=== PATIENT | female | born 1965 | race Caucasian/White ===

== ENCOUNTER 2018-04-03 17:06 | Inpatient (IN) | payer OTHER ==
[2018-04-03] VITALS (7 sets, daily range): BP systolic 127–140
[~2018-04-03] VITALS: Ht 154.9 cm; Wt 81.6 kg
[2018-04-03] MEDS ORDERED: NALOXONE HCL 2 MG/2 ML SYR IVP ONE (17:15)
[2018-04-03 17:26] LABS: BILIRUBIN,URINE 1+ (NEGATIVE); BLOOD, URINE NEGATIVE (NEGATIVE); CLARITY/URINE CLEAR (CLEAR); COLOR,URINE YELLOW (YELLOW); GLUCOSE,URINE NEGATIVE (NEGATIVE); KETONES,URINE TRACE (NEGATIVE); LEUKOCYTE ESTERASE ,URINE NEGATIVE (NEGATIVE); NITRITE, URINE NEGATIVE (NEGATIVE); PH,URINE 5.5 (5.0-8.0); PROTEIN URINE TRACE (NEGATIVE); UROBILINOGEN,URINE 0.2 (0.2-1.0)
[2018-04-03 17:39] LABS: BACTERIA,URINE MODERATE /HPF (None Seen); MUCUS,URINE 1+ /LPF (None Seen); RBC,URINE 0-3 /HPF (0-3); WBC,URINE 0-3 /HPF (0-3)
[2018-04-03 17:43] LABS: BARBITURATE, URINE NEGATIVE (NEG <=200)
[2018-04-03 17:44] LABS: BASOPHILS # (AUTO) 0.1 K/uL (0.0-0.2); BASOPHILS % (AUTO) 1.7 % (0.0-2.0); EOSINOPHILS # (AUTO) 0.1 K/uL (0.0-0.4); EOSINOPHILS % (AUTO) 1.8 % (0.0-4.0); HEMATOCRIT 40.2 % (36-48); HEMOGLOBIN 13.2 g/dL (12.0-16.0); LYMPHOCYTES # (AUTO) 2.2 K/uL (1.0-5.5); LYMPHOCYTES % (AUTO) 33.1 % (20.5-51.5); MEAN CORPUSCULAR HEMOGLOBIN 30 pg (27-31); MEAN CORPUSCULAR HGB CONC 33 % (32-36); MEAN CORPUSCULAR VOLUME 92 fL (79.0-98.0); MONOCYTES # (AUTO) 0.4 K/uL (0.0-1.0); MONOCYTES % (AUTO) 6.9 % (1.7-9.3); NEUTROPHILS # (AUTO) 3.7 K/uL (1.8-7.7); NEUTROPHILS % (AUTO) 56.5 % (40.0-70.0); PLATELET COUNT (AUTO) 304 K/uL (130-430); RED BLOOD CELL COUNT(AUTO) 4.39 MIL/uL (4.2-6.2); RED CELL DISTRIBUTION WIDTH 13.4 % (9.0-15.0); WHITE BLOOD COUNT (AUTO) 6.5 K/uL (4.8-10.8)
[2018-04-03 17:44] LABS: BENZODIAZEPINE, URINE POSITIVE (NEG <=150); CANNABINOID, URINE POSITIVE (NEG <=50); COCAINE, URINE NEGATIVE (NEG <=150); METHAMPHETAMINES SCREEN,URINE POSITIVE (NEG <=500); OPIATE, URINE NEGATIVE (NEG <=100); PHENCYCLIDINE SCREEN,URINE NEGATIVE (NEG <=25); UR TRICYCLIC ANTIDEPRESSANTS POSITIVE (NEG <=300); URINE AMPHETAMINE NEGATIVE (NEG <=500); URINE METHADONE NEGATIVE (NEG <=200); URINE OXYCODONE SCREEN NEGATIVE (NEG <=100); URINE PROPOXYPHENE SCREEN NEGATIVE (NEG <=300)
[2018-04-03 17:48] LABS: CALCIUM 9.4 mg/dL (8.4-11.0); CREATININE 1.32 mg/dL (0.55-1.30); POTASSIUM 3.2 mmol/L (3.5-5.1)
[2018-04-03 17:54] LABS: ALBUMIN 3.9 g/dL (3.4-4.8); TOTAL BILIRUBIN 0.4 mg/dL (0.0-1.0)
[2018-04-03] MEDS ORDERED: SODIUM BICARBONATE 8.4% JECT 50 MEQ/50 ML SYRINGE IVP ONE (18:00)
[2018-04-03] MEDS ORDERED: LORazepam 2 MG/ML VIAL (FOR ER USE) ONE ×2 (18:17→18:19)
[2018-04-03] MEDS ORDERED: ZOLP10TA2 PO (18:33)
[2018-04-03] MEDS ORDERED: TYC3 PO (18:33)
[2018-04-03] MEDS ORDERED: CARI350T27 PO (18:33)
[2018-04-03] MEDS ORDERED: GABA-531 PO (18:33)
[2018-04-03] MEDS ORDERED: CLON2TAB4 PO (18:33)
[2018-04-03] MEDS ORDERED: CLON1TAB4 PO (18:33)
[2018-04-03] MEDS ORDERED: HYDR-1189 PO (18:33)
[2018-04-03] MEDS ORDERED: D5LR 1,000 ML IV ONE (19:00)
[2018-04-03] MEDS ORDERED: THIAMINE HCL 100 MG in NS 50 ML IV ONE (20:45)
[2018-04-03] MEDS ORDERED: D5LR 500 ML IV ONE (20:45)
[2018-04-03] MEDS ORDERED: PANTOPRAZOLE SODIUM 40 MG/VIAL (PROTONIX) IVP ONE (21:00)
[2018-04-03] MEDS ORDERED: hydrALAZINE HCL 20 MG/ML VIAL IVP PRN (21:00)
[2018-04-03] MEDS ORDERED: LORazepam 2 MG/ML VIAL IVP PRN (21:00)
[2018-04-03] MEDS ORDERED: D5LR 1,000 ML IV SCH (21:00)
[2018-04-03] MEDS ORDERED: THIAMINE HCL 100 MG/ML VIAL ONE ×2 (21:09→21:10)
[2018-04-03 21:13] LABS: CALCIUM 8.6 mg/dL (8.4-11.0); CREATININE 0.99 mg/dL (0.55-1.30); POTASSIUM 3.5 mmol/L (3.5-5.1)
[2018-04-03] MEDS ORDERED: FLUMAZENIL 0.1 MG/ML IVP ONE ×2 (21:30→21:31)
[2018-04-04] VITALS (17 sets, daily range): BP systolic 113–153
[2018-04-04] MEDS ORDERED: HYDROcodone/ACETAMIN 10-325 MG TAB ONE (00:25)
[2018-04-04] MEDS ORDERED: HYDROcodone/ACETAMIN 10-325 MG TAB PO PRN (00:30)
[2018-04-04] MEDS ORDERED: D5LR 1,000 ML IV SCH (00:45)
[2018-04-04] MEDS ORDERED: ACETAMINOPHEN 325 MG TABLET PO PRN (00:45)
[2018-04-04] MEDS ORDERED: HYDROcodone/ACETAMIN 5-325 MG TAB (NORCO/ VICODIN) PO PRN (00:45)
[2018-04-04] MEDS: HYDROcodone/ACETAMIN 10-325 MG TAB PO PRN ×5 (03:39→22:33)
[2018-04-04 06:26] LABS: BASOPHILS % (AUTO) 0.2 % (0.0-2.0); EOSINOPHILS # (AUTO) 0.2 K/uL (0.0-0.4); EOSINOPHILS % (AUTO) 2.9 % (0.0-4.0); HEMATOCRIT 35.2 % (36-48); HEMOGLOBIN 11.8 g/dL (12.0-16.0); LYMPHOCYTES # (AUTO) 2.2 K/uL (1.0-5.5); LYMPHOCYTES % (AUTO) 27.7 % (20.5-51.5); MEAN CORPUSCULAR HEMOGLOBIN 31 pg (27-31); MEAN CORPUSCULAR HGB CONC 34 % (32-36); MEAN CORPUSCULAR VOLUME 92 fL (79.0-98.0); MONOCYTES # (AUTO) 0.7 K/uL (0.0-1.0); MONOCYTES % (AUTO) 8.8 % (1.7-9.3); NEUTROPHILS # (AUTO) 4.8 K/uL (1.8-7.7); NEUTROPHILS % (AUTO) 60.4 % (40.0-70.0); PLATELET COUNT (AUTO) 258 K/uL (130-430); RED BLOOD CELL COUNT(AUTO) 3.81 MIL/uL (4.2-6.2); RED CELL DISTRIBUTION WIDTH 13.4 % (9.0-15.0); WHITE BLOOD COUNT (AUTO) 7.9 K/uL (4.8-10.8)
[2018-04-04 07:28] LABS: ANION GAP 8 (5-15); CHLORIDE 107 mmol/L (98-107); POTASSIUM 3.7 mmol/L (3.5-5.1); SODIUM SERUM 144 mmol/L (136-145)
[2018-04-04 07:29] LABS: CALCIUM 8.7 mg/dL (8.4-11.0); GFR AFRICAN AMERICAN 84 mL/min (>90); GLUCOSE 98 mg/dL (70-99); TOTAL BILIRUBIN 0.7 mg/dL (0.0-1.0); UREA NITROGEN, BLOOD 12 mg/dL (8-21)
[2018-04-04 07:30] LABS: ALANINE AMINOTRANSFERASE 21 U/L (12-78); ALBUMIN 3.2 g/dL (3.4-4.8); ASPARTATE AMINOTRANSFERASE 25 U/L (10-37)
[2018-04-04 07:32] LABS: AMYLASE 108 U/L (0-100); PHOSPHORUS 3.1 mg/dL (2.7-4.5)
[2018-04-04 07:46] LABS: LIPASE 224 U/L (73-393)
[2018-04-04] MEDS ORDERED: PANTOPRAZOLE SODIUM 40 MG/VIAL (PROTONIX) IVP SCH (09:00)
[2018-04-04] MEDS ORDERED: ACETAMINOPHEN 500 MG TABLET PO PRN (13:15)
[2018-04-04] MEDS ORDERED: NS 1000 ML IV.SOLN IV ONE (22:54)
[2018-04-04] MEDS ORDERED: SODIUM BICARBONATE 8.4% JECT 50 MEQ/50 ML SYRINGE IVP ONE (22:54)
== END 2018-04-04 22:55 | disposition short-term general hospital (02) | DRG 917 ==
LOC: SED 17:06 → SIC 18:46 → STU 04-04 15:24
PROVIDERS: ADMIT Internal Medicine; ATTEND Internal Medicine
DX: T50.904A Poisoning by unspecified drugs, medicaments and biological substances, undetermined, initial encounter (principal); J96.00 Acute respiratory failure, unspecified whether with hypoxia or hypercapnia; G92 Toxic encephalopathy; N17.0 Acute kidney failure with tubular necrosis; E87.4 Mixed disorder of acid-base balance; E44.1 Mild protein-calorie malnutrition; I10 Essential (primary) hypertension; F32.9 Major depressive disorder, single episode, unspecified; G89.4 Chronic pain syndrome; E66.01 Morbid (severe) obesity due to excess calories; D64.9 Anemia, unspecified; F10.10 Alcohol abuse, uncomplicated; F12.10 Cannabis abuse, uncomplicated; Z68.34 Body mass index [BMI] 34.0-34.9, adult; Y92.89 Other specified places as the place of occurrence of the external cause; Z79.899 Other long term (current) drug therapy
CPT/HCPCS: 36415; 36600; 70450-TC; 71045; 80048; 80053; 80307; 80324; 81000-TC; 82150-TC; 82803-TC; 83690-TC; 83735-TC; 84100-TC; 84484; 85025; 85610-TC; 85730-TC; 87081; 87086; 93005; 96374; 96375; 99291; C9113; G0480; G0482; J0360; J2060; J3411; J3490; J7030; J7120

== ENCOUNTER 2024-04-15 17:18 | Inpatient (IN) | payer OTHER ==
[~2024-04-15] VITALS: Ht 152.4 cm; Wt 97.1 kg
[~2024-04-15 17:18] MED LIST: CARI350T27 PO; CLON1TAB12 PO; CLON2TAB11 PO; GABA-531 PO; HYDR-3919 PO; TYC3 PO; ZOLP10TA2 PO
[2024-04-15 17:19] VITALS: BP_SYST 104; PULSE 73; RESP 17; TEMP 97.9; O2SAT 97
[2024-04-15] MEDS: NACL 0.9% 1,000 ML IV ONE ×2 (18:30→19:16)
[2024-04-15] MEDS: NS 1000 ML IV.SOLN IV ONE (18:30)
[2024-04-15] MEDS ORDERED: PRED1TAB PO (19:18)
[2024-04-15] MEDS ORDERED: HYDR25TA4 PO (19:18)
[2024-04-15 19:49] LABS: BASOPHILS % (AUTO) 0.4 % (0.0-2.0); EOSINOPHILS # (AUTO) 0.3 K/uL (0.0-0.4); EOSINOPHILS % (AUTO) 4.7 % (0.0-4.0); HEMATOCRIT 42.9 % (36-48); HEMOGLOBIN 14.3 g/dL (12.0-16.0); LYMPHOCYTES # (AUTO) 1.4 K/uL (1.0-5.5); LYMPHOCYTES % (AUTO) 25.5 % (20.5-51.5); MEAN CORPUSCULAR HEMOGLOBIN 29 pg (27-31); MEAN CORPUSCULAR HGB CONC 34 % (32-36); MEAN CORPUSCULAR VOLUME 88 fL (79.0-98.0); MONOCYTES # (AUTO) 0.7 K/uL (0.0-1.0); MONOCYTES % (AUTO) 13.7 % (1.7-9.3); NEUTROPHILS % (AUTO) 55.7 % (40.0-70.0); PLATELET COUNT (AUTO) 244 K/uL (130-430); RED BLOOD CELL COUNT(AUTO) 4.89 MIL/uL (4.2-6.2); RED CELL DISTRIBUTION WIDTH 14.4 % (9.0-15.0); WHITE BLOOD COUNT (AUTO) 5.5 K/uL (4.8-10.8)
[2024-04-15 20:14] LABS: ALANINE AMINOTRANSFERASE 11 U/L (12-78); ALBUMIN 2.6 g/dL (3.4-4.8); ANION GAP 3 (5-15); ASPARTATE AMINOTRANSFERASE 15 U/L (10-37); BILIRUBIN,DIRECT 0.2 mg/dL (0.0-0.3); CALCIUM 9.7 mg/dL (8.4-11.0); CHLORIDE 88 mmol/L (98-107); CREATININE 1.61 mg/dL (0.55-1.30); GFR AFRICAN AMERICAN 42 mL/min (>90); GLUCOSE 140 mg/dL (74-106); SODIUM SERUM 136 mmol/L (136-145); TOTAL BILIRUBIN 0.7 mg/dL (0.0-1.0); TOTAL PROTEIN, SERUM 6.8 g/dL (6.4-8.3); UREA NITROGEN, BLOOD 85 mg/dL (8-21)
[2024-04-15 20:16] LABS: GFR NON AFRICAN-AMERICAN 35 mL/min (>90)
[2024-04-15 20:18] LABS: CARBON DIOXIDE 45 mmol/L (23-29); POTASSIUM 2.5 mmol/L (3.5-5.1)
[2024-04-15] MEDS: POTASSIUM CHLORIDE 20 MEQ/PKT PACKET PO ONE (20:48)
[2024-04-15] MEDS ORDERED: NEU300 PO (20:59)
[2024-04-15] MEDS ORDERED: ATEN-41 PO (20:59)
[2024-04-15] MEDS ORDERED: CYM30 PO (20:59)
[2024-04-15] MEDS ORDERED: PRAM0.5T10 PO (20:59)
[2024-04-15] MEDS ORDERED: ZAN4 PO (20:59)
[2024-04-15] MEDS ORDERED: COLC0.6T67 PO (20:59)
[2024-04-15] MEDS ORDERED: POTA-197 PO (20:59)
[2024-04-15] MEDS ORDERED: FURO-150 PO (20:59)
[2024-04-15] MEDS ORDERED: ALBUTEROL SULFATE 0.083% 2.5 MG/3 ML VIAL.NEB INH PRN (21:15)
[2024-04-15] MEDS ORDERED: ONDANSETRON HCL 4 MG/2 ML VIAL IVP PRN (21:15)
[2024-04-15] MEDS ORDERED: ZOLPIDEM TARTRATE 5 MG TABLET PO SCH (21:15)
[2024-04-15] MEDS ORDERED: cefTRIAXone 2 GM VIAL ONE (21:26)
[2024-04-15 21:48] LABS: INR 1.1 (0.8-1.2); PROTHROMBIN TIME 10.9 SECS (9.5-12.5)
[2024-04-15 23:00] LABS: BILIRUBIN,URINE NEGATIVE (NEGATIVE); BLOOD, URINE NEGATIVE (NEGATIVE); CLARITY/URINE SL CLOUDY (CLEAR); COLOR,URINE YELLOW (YELLOW); GLUCOSE,URINE NEGATIVE (NEGATIVE); KETONES,URINE NEGATIVE (NEGATIVE); LEUKOCYTE ESTERASE ,URINE 1+ (NEGATIVE); NITRITE, URINE POSITIVE (NEGATIVE); PROTEIN URINE NEGATIVE (NEGATIVE); UROBILINOGEN,URINE 0.2 (0.2-1.0)
[2024-04-15 23:14] LABS: BARBITURATE, URINE NEGATIVE (NEG <=200); METHAMPHETAMINES SCREEN,URINE NEGATIVE (NEG <=500); URINE AMPHETAMINE NEGATIVE (NEG <=500); URINE METHADONE NEGATIVE (NEG <=200)
[2024-04-15 23:15] LABS: BENZODIAZEPINE, URINE NEGATIVE (NEG <=150); COCAINE, URINE NEGATIVE (NEG <=150)
[2024-04-15 23:16] LABS: CANNABINOID, URINE NEGATIVE (NEG <=50); OPIATE, URINE NEGATIVE (NEG <=100); PHENCYCLIDINE SCREEN,URINE NEGATIVE (NEG <=25); URINE OXYCODONE SCREEN POSITIVE (NEG <=100)
[2024-04-15 23:17] LABS: BACTERIA,URINE MANY /HPF (None Seen); MUCUS,URINE None Seen /LPF (None Seen); RBC,URINE 0-3 /HPF (0-3); UR TRICYCLIC ANTIDEPRESSANTS NEGATIVE (NEG <=300); URINE AMORPHOUS URATE 2+ /HPF (None Seen)
[2024-04-15 23:29] VITALS: BP_SYST 119; PULSE 48; O2SAT 100
[2024-04-16] VITALS (12 sets, daily range): BP systolic 101–144; PULSE 52–78; RESP 16–20; TEMP 96.8–98.5; O2SAT 95–100
[2024-04-16] MEDS: IPRATROPIUM BROM 0.5 MG/2.5 ML VIAL.NEB (ATROVENT) INH SCH (00:39)
[2024-04-16] MEDS: NACL 0.9% 1,000 ML IV SCH (00:48)
[2024-04-16] MEDS: ZOLPIDEM TARTRATE 5 MG TABLET PO PRN (01:26)
[2024-04-16] MEDS: ACETAMINOPHEN 325 MG TABLET PO PRN (01:27)
[2024-04-16 06:58] LABS: BASOPHILS % (AUTO) 0.7 % (0.0-2.0); EOSINOPHILS # (AUTO) 0.4 K/uL (0.0-0.4); EOSINOPHILS % (AUTO) 7.2 % (0.0-4.0); HEMATOCRIT 43.2 % (36-48); LYMPHOCYTES # (AUTO) 1.7 K/uL (1.0-5.5); LYMPHOCYTES % (AUTO) 28.4 % (20.5-51.5); MEAN CORPUSCULAR HEMOGLOBIN 29 pg (27-31); MEAN CORPUSCULAR HGB CONC 33 % (32-36); MEAN CORPUSCULAR VOLUME 90 fL (79.0-98.0); MONOCYTES # (AUTO) 0.8 K/uL (0.0-1.0); MONOCYTES % (AUTO) 13.1 % (1.7-9.3); NEUTROPHILS % (AUTO) 50.6 % (40.0-70.0); PLATELET COUNT (AUTO) 227 K/uL (130-430); RED BLOOD CELL COUNT(AUTO) 4.83 MIL/uL (4.2-6.2); RED CELL DISTRIBUTION WIDTH 14.4 % (9.0-15.0)
[2024-04-16 07:22] LABS: CALCIUM 9.5 mg/dL (8.4-11.0); CREATININE 1.1 mg/dL (0.55-1.30)
[2024-04-16 07:26] LABS: POTASSIUM 2.2 mmol/L (3.5-5.1)
[2024-04-16] MEDS: tiZANidine HCL 4 MG TABLET PO SCH (09:00)
[2024-04-16] MEDS: COLCHICINE 0.6 MG TABLET PO SCH (09:10)
[2024-04-16] MEDS: carisoprodoL 350 MG TABLET PO SCH (09:10)
[2024-04-16] MEDS: GABAPENTIN 300 MG CAPSULE PO SCH (09:11)
[2024-04-16] MEDS: DULoxetine HCL 30 MG CAPSULE.DR (CYMBALTA) PO SCH (09:11)
[2024-04-16] MEDS: ATENOLOL 25 MG TABLET(TENORMIN) PO SCH (09:12)
[2024-04-16] MEDS: clonazePAM 0.5 MG TABLET PO SCH (09:13)
[2024-04-16] MEDS: HEPARIN SODIUM,PORCINE 5,000 UNITS/ML VIAL SUBCUT SCH (09:15)
[2024-04-16] MEDS: FUROSEMIDE 20 MG/2 ML VIAL IVP SCH (09:22)
[2024-04-16 10:18] LABS: ABG O2 SAT% ESTIMATE 95.7 % (94.0-100.0); BLOOD GAS BASE EXCESS 19.1 mmol/L (-3.0-3.0); BLOOD GAS HCO3 45.1 mmol/L (21.0-27.0); BLOOD GAS PO2 72.1 mmHg (75.0-100.0)
[2024-04-16 10:23] LABS: ALLEN'S TEST POSITIVE (P)
[2024-04-16 10:28] LABS: BLOOD GAS PCO2 55.1 mmHg (35.0-45.0); BLOOD GAS PH 7.531 (7.350-7.450)
[2024-04-16] MEDS: POTASSIUM CHLORIDE 40 MEQ, LIDOCAINE JECT 2% PF 100 MG 75 MG in NS 250 ML IV SCH (10:46)
[2024-04-16] MEDS: POTASSIUM CHLORIDE 20 MEQ/PKT PACKET PO SCH (21:11)
[2024-04-16] MEDS: cefTRIAXone 1 GM IVPB PREMIX 50 ML IV SCH (21:12)
[2024-04-17] VITALS (7 sets, daily range): BP systolic 110–147; PULSE 64–93; RESP 18–20; TEMP 97.4–98.2; O2SAT 94–98
[2024-04-17 05:14] LABS: BASOPHILS # (AUTO) 0.1 K/uL (0.0-0.2); EOSINOPHILS # (AUTO) 0.4 K/uL (0.0-0.4); EOSINOPHILS % (AUTO) 7.5 % (0.0-4.0); HEMATOCRIT 41.4 % (36-48); HEMOGLOBIN 13.3 g/dL (12.0-16.0); LYMPHOCYTES # (AUTO) 2.1 K/uL (1.0-5.5); LYMPHOCYTES % (AUTO) 40.1 % (20.5-51.5); MEAN CORPUSCULAR HEMOGLOBIN 29 pg (27-31); MEAN CORPUSCULAR HGB CONC 32 % (32-36); MEAN CORPUSCULAR VOLUME 90 fL (79.0-98.0); MONOCYTES # (AUTO) 0.7 K/uL (0.0-1.0); MONOCYTES % (AUTO) 13.1 % (1.7-9.3); NEUTROPHILS % (AUTO) 38.3 % (40.0-70.0); PLATELET COUNT (AUTO) 239 K/uL (130-430); RED BLOOD CELL COUNT(AUTO) 4.62 MIL/uL (4.2-6.2); RED CELL DISTRIBUTION WIDTH 14.7 % (9.0-15.0); WHITE BLOOD COUNT (AUTO) 5.3 K/uL (4.8-10.8)
[2024-04-17 05:29] LABS: CALCIUM 9.6 mg/dL (8.4-11.0); CREATININE 0.93 mg/dL (0.55-1.30)
[2024-04-17 06:32] LABS: POTASSIUM 2.8 mmol/L (3.5-5.1)
[2024-04-17] MEDS ORDERED: POTASSIUM CHLORIDE 40 MEQ, LIDOCAINE JECT 2% PF 100 MG 50 MG in NS 250 ML IV ONE (08:00)
[2024-04-17] MEDS: POTASSIUM CHLORIDE 40 MEQ in NS 250 ML IV ONE (10:40)
[2024-04-17] MEDS: POTASSIUM CHLORIDE 20 MEQ TABLET.ER PO ONE (10:40)
== END 2024-04-17 19:30 | disposition short-term general hospital (02) | DRG 689 ==
LOC: SED 17:18 → STU 21:02 → SMU 04-17 19:23
PROVIDERS: ADMIT Student in an Organized Health Care Education/Training Program; ATTEND Student in an Organized Health Care Education/Training Program
DX: N39.0 Urinary tract infection, site not specified (principal); G93.41 Metabolic encephalopathy; N17.9 Acute kidney failure, unspecified; I13.0 Hypertensive heart and chronic kidney disease with heart failure and stage 1 through stage 4 chronic kidney disease, or unspecified chronic kidney disease; Z68.41 Body mass index [BMI] 40.0-44.9, adult; E66.9 Obesity, unspecified; E87.6 Hypokalemia; I50.9 Heart failure, unspecified; G25.81 Restless legs syndrome; N18.9 Chronic kidney disease, unspecified; Z79.899 Other long term (current) drug therapy
CPT/HCPCS: 36415; 36600; 70450-TC; 71045; 71250-TC; 76770; 80048; 80076; 80307; 81000; 81001; 81015; 82803; 83605; 83880; 84484; 85025; 85610; 85730; 87040; 87081; 87086; 87186; 93005; 93306; 94070; 94640; 94760; 96365; 99285; G0378; J0696; J1644; J1940; J3480; J7050